=== PATIENT | male | born 1975 ===

== ENCOUNTER 2019-09-22 13:10 | Day surgery (SDC) | payer OTHER ==
[~2019-09-22] VITALS: Ht 180.3 cm; Wt 82.1 kg
[~2019-09-22 13:10] MED LIST: ALBU90OI61 INH; Flonase 0.05% N16 GM; Flovent Diskus50 MCG IH; OMEPRAZOLE20 MG
--- NOTE | 2019-09-22 16:29 | NUR ---
09/22/19 1629 Haydee Brady LONG DISCUSSION BETWEEN DR LOPEZ, PATIENT AND PATIENTS . PATIENT WAS READY FOR DISCHARGE AND STABLE THROUGHOUT BUT THE DISCUSSION PROLONGED THE RECOVERY/STEPDOWN TIME.
== END 2019-09-22 16:25 | disposition home or self-care (01) ==
LOC: ORSCSDS 13:10
PROVIDERS: Internal Medicine Gastroenterology
PROC: 0DBH8ZX Excision of Cecum, Via Natural or Artificial Opening Endoscopic, Diagnostic (ICD-10-PCS; principal; 2019-09-22 14:30)
PROC: 0DBL8ZX Excision of Transverse Colon, Via Natural or Artificial Opening Endoscopic, Diagnostic (ICD-10-PCS; principal; 2019-09-22 14:30)
PROC: 0DBE8ZX Excision of Large Intestine, Via Natural or Artificial Opening Endoscopic, Diagnostic (ICD-10-PCS; principal; 2019-09-22 14:30)
DX: R19.5 Other fecal abnormalities (principal); K62.5 Hemorrhage of anus and rectum; R10.9 Unspecified abdominal pain; K52.9 Noninfective gastroenteritis and colitis, unspecified; D12.5 Benign neoplasm of sigmoid colon; D12.3 Benign neoplasm of transverse colon; K57.30 Diverticulosis of large intestine without perforation or abscess without bleeding; J45.909 Unspecified asthma, uncomplicated; Z79.899 Other long term (current) drug therapy
CPT/HCPCS: 88305; J2704; J7120

== ENCOUNTER → 2019-10-02 | Outpatient (CLI) | payer OTHER | LOC: LAB 10:28 → LAB SHORT 10:28 | DX: K51.20 Ulcerative (chronic) proctitis without complications (principal) | CPT/HCPCS: 83993; 87493 ==